=== PATIENT | male | born 1980 | race Caucasian/White ===

== ENCOUNTER 2017-01-07 00:13 | Emergency (ER) | payer BC, OTHER ==
[~2017-01-07] VITALS: Ht 193 cm; Wt 86.0 kg
[~2017-01-07 00:13] MED LIST: FLUO20CA35 PO
[2017-01-07 00:25] VITALS: TEMP 36.8; Ht 193 cm; Wt 86.0 kg
[2017-01-07] MEDS ORDERED: DIPHTHERIA/TETANUS/PERTUSSIS 0.5 ML SYR/VIAL IM. ONE (00:45)
[2017-01-07 02:30] VITALS: BP 125/85; PULSE 93; O2SAT 97
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
== END 2017-01-07 02:31 | disposition home or self-care (01) ==
LOC: C.EDB 00:14
DX: F17.200 Nicotine dependence, unspecified, uncomplicated (principal); S43.52XA Sprain of left acromioclavicular joint, initial encounter; S93.402A Sprain of unspecified ligament of left ankle, initial encounter; V86.99XA Unspecified occupant of other special all-terrain or other off-road motor vehicle injured in nontraffic accident, initial encounter; S40.212A Abrasion of left shoulder, initial encounter; S80.812A Abrasion, left lower leg, initial encounter